=== PATIENT | male | born 1950 | race Caucasian/White ===

== ENCOUNTER 2019-07-17 05:37 | Day surgery (SDC) | payer MEDICARE, OTHER ==
[2019-07-17] MEDS ORDERED: Dextrose 5%-Lactated Ringers 1,000 ML IV SCH (06:00)
[2019-07-17] MEDS ORDERED: fentaNYL 100 MCG/2 ML SDV ONE (07:10)
[2019-07-17] MEDS ORDERED: Propofol 200 MG/20 ML SDV ONE (07:10)
[2019-07-17] MEDS ORDERED: Midazolam 1 MG/ML 2 ML SDV ONE (07:10)
--- NOTE | 2019-07-22 17:56 | OR ---
DATE OF PROCEDURE: 07/17/2019 SURGEON: Donny Cm MD PREOPERATIVE DIAGNOSIS: Diarrhea/frequent loose bowel movements. POSTOPERATIVE DIAGNOSES: 1. Diarrhea/frequent loose bowel movements associated with grossly normal colonic mucosa. 2. Uncomplicated left colonic diverticulosis. OPERATIVE PROCEDURES: Flexible colonoscopy with, 1. Collection of stool for microbiologic workup (02403). 2. Random colorectal biopsies to rule out microscopic colitis (53237). ANESTHESIA: IV sedation. INDICATION FOR PROCEDURE: This is a 68-year-old with a several-week history of chronic diarrhea or frequent loose bowel movements. He is to undergo a flexible colonoscopy at this time to try to establish if there is any underlying pathology accounting for this. The plan will be to collect stool for full microbiologic workup and if no mucosal abnormalities are seen, we would do random colorectal biopsies to rule out microscopic colitis. Potential risks of the procedure including bleeding and perforation were discussed, and the patient wishes to proceed. DETAILS OF PROCEDURE: The patient was taken to the operating room and placed in a left lateral decubitus position. IV sedation was administered, after which the initial digital rectal exam was performed and was unremarkable. Colonoscope was then passed into the rectum with retroflexion revealing uncomplicated hemorrhoidal columns. The scope could then easily be passed through the level of the cecum. The patient had some uncomplicated colonic diverticula on the left side. Otherwise, there were some small amounts of scattered stool. No blood or bleeding was seen. There were no polyps or other signs of neoplasia. Likewise, there were no areas of gross colitis. At this point, stool for microbiologic workup had been collected. We then did random colorectal biopsies beginning at the cecum and extending down throughout the colon and rectum. Minimal bleeding from the biopsy site was seen, and the procedure then concluded. The patient will be following up with Dr. Warren in 7 to 10 days in the [facility]. Donny mC MD /[id number]
== END 2019-07-17 08:45 | disposition home or self-care (01) ==
LOC: JP.SDS 05:37
PROVIDERS: ATTEND Surgery
DX: K52.9 Noninfective gastroenteritis and colitis, unspecified (principal); R19.4 Change in bowel habit; K57.30 Diverticulosis of large intestine without perforation or abscess without bleeding; E11.9 Type 2 diabetes mellitus without complications
CPT/HCPCS: 45380; 87046; 87177; 87209; 87493; 87899; 88305; 89055; J2250; J2704; J3010; J7121